=== PATIENT | male | born 2000 ===

== ENCOUNTER 2019-04-01 16:30 | Emergency (ER) | payer OTHER ==
[~2019-04-01] VITALS: Ht 185.4 cm; Wt 66.7 kg
--- NOTE | 2019-04-01 16:39 | NUR ---
CALLED PATIENT NO ANSWER
--- NOTE | 2019-04-01 16:56 | NUR ---
Pt assessed. Reports bilateral testicular "tenderness" for past hour. Pt reports L worst than R. Denies trauma, fever, or urinary s/s. Girlfriend at BS. Will cont to monitor.
[2019-04-01 17:23] LABS: MICROSCOPIC NOT IND
[2019-04-01 17:29] LABS: CULTURE INDICATED? NO
--- NOTE | 2019-04-01 18:25 | NUR ---
Rounded on pt. Still waiting for US. VS checked. NAD at this time. Will cont to monitor
--- NOTE | 2019-04-01 18:57 | NUR ---
Report to Paulette WEINBERG, turning over care at this time
[2019-04-01 19:18] VITALS: BP 100/70
--- NOTE | 2019-04-01 19:33 | NUR ---
PT RESTING CALMLY, MONITROS IN PLACE, CALL LIGHT5 WITHIN REACH
== END 2019-04-01 19:56 | disposition home or self-care (01) ==
LOC: ED 18:05
DX: N50.82 Scrotal pain (principal); N43.2 Other hydrocele
CPT/HCPCS: 76870; 81003; 99284

== ENCOUNTER 2019-12-20 09:37 | Inpatient (IN) | payer OTHER ==
[~2019-12-20] VITALS: Ht 185.4 cm; Wt 67.5 kg
[2019-12-20] MEDS ORDERED: OXYcodone/APAP 5/325MG TABLET PO ONE (10:00)
[2019-12-20] MEDS ORDERED: OXYcodone/APAP 5/325MG TABLET ONE (10:27)
--- NOTE | 2019-12-20 10:31 | NUR ---
RIGHT WRIST SWELLING/DEFORMITY. GOOD CMS. STATES HE FELL OFF A ROOF LAST NIGHT. PT STATES HE ALSO HIT HIS HEAD. PT DOES NOT RECALL HOW FAR HE FELL. DENIES NECK PAIN. MEDICATED FOR RIGHT WRIST PAIN. PA DISCUSSING XRYA RESULTS.
--- NOTE | 2019-12-20 10:40 | NUR ---
yon tavares spoke with dr diane
[2019-12-20] MEDS ORDERED: SODIUM CHLORIDE FLUSH 10ML SYR IVF ONE (11:00)
--- NOTE | 2019-12-20 11:15 | NUR ---
PT MOVED TO ROOM 27. KAILEY JAY AT BEDSIDE TO UPDATE PT WITH RESULTS AND POC, INCLUDING HEAD CT RESULTS. PT STATES LAST PO INTAKE WAS WATER WITH MED AT 1030 THIS AM, LAST FOOD INTAKE WAS PIZZA AT 2200 LAST NIGHT. PT PT DENIES HEAD OR NECK PAIN. PUPILS ARE EQUAL ROUND AND REACTIVE. PT IS DROWSY (STATES THIS IS SECONDARY TO PERCOCET), BUT ORIENTED X 4. EYES OPEN SPONTANEOUSLY. NEURO INTACT. PT INSTRUCTED TO REMAIN IN BED, WITH HEAD AT 30 DEGREES.
[2019-12-20 11:18] LABS: BASOPHILS # (AUTO) 0.02 x10^3/uL (0-0.3); BASOPHILS % (AUTO) 0 % (0-1); EOSINOPHILS % (AUTO) 0 % (1-7); LYMPHOCYTES # (AUTO) 0.87 x10^3/uL (1-6.1); LYMPHOCYTES % (AUTO) 7 % (22-44); MD NO; MEAN CORPUSCULAR HEMOGLOBIN 32.5 pg (27.5-34.5); MEAN CORPUSCULAR VOLUME 95.7 fL (81-97); MEAN PLATELET VOLUME 7.7 fL (7.4-10.4); MONOCYTES # (AUTO) 0.78 x10^3/uL (0-1.4); MONOCYTES % (AUTO) 7 % (2-9); NEUTROPHILS # (AUTO) 10.21 x10^3/uL (1.8-8.0); NEUTROPHILS % (AUTO) 86 % (42-75); PLATELET COUNT 283 x10^3/uL (130-400); RED CELL DISTRIBUTION WIDTH 12.4 % (9.4-14.8)
[2019-12-20 11:28] LABS: ANION GAP 13 mmol/L (5-15); CALCIUM 8.4 mg/dL (8.5-10.1); CHLORIDE 104 mmol/L (98-107); CREATININE 0.87 mg/dL (0.7-1.3)
--- NOTE | 2019-12-20 11:29 | NUR ---
REPORT TO MARLENI WEINBERG
--- NOTE | 2019-12-20 11:40 | NUR ---
NEUROSURGEON CONSULTED, MD AT BEDSIDE AT THIS TIME FOR PATIENT ASSESSMENT AND EDUCATION. PT TO GO TO ICU FOR MONITORING, ORTHO SURGERY TO BE DELAYED UNTIL TOMORROW.
--- NOTE | 2019-12-20 11:49 | NUR ---
EDT'S AT BEDSIDE FOR SPLINT. SECOND PIV PLACED. REPORT GIVEN TO BREAK SULTANA ERWIN. VSS. NEURO CHECKS IN PLACE, NO CHANGE IN STATUS AT THIS TIME.
--- NOTE | 2019-12-20 12:28 | NUR ---
REPORT RECEIVED FROM HANNAH SANTOS, THIS RN RESUMING CARE.
--- NOTE | 2019-12-20 12:49 | NUR ---
PT A&OX4, REPSS EVEN AND UNLABORED. NEURO INTACT, PUPILS EQUAL, ROUND AND REACTIVE. PT DENIES PAIN. PT SPEAKING IN FULL SENTENCES WITHOUT DIFFICULTY. FRIEND AT BEDSIDE. AWAITING ICU ROOM ASSIGNEMENT AND DISPO.
--- NOTE | 2019-12-20 13:16 | NUR ---
PT GIVEN WATER WITH MD JAY'S OK. PT TOLERATED WELL. HEAD OF BED MAINTAINED AT 30 DEGREES, SEIZURE PRECAUTIONS IN PLACE. VSS. ALL MONITORS IN PLACE. 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 AWAITING ICU BED ASSIGNMENT AND DISPO.
--- NOTE | 2019-12-20 13:24 | NUR ---
MD GOMEZ AT BEDSIDE FOR ADMIT ASSESSMENT. PT A&O, RESPS EVEN AND UNLABORED. 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 PT SPEAKING IN FULL SENTENCES WITHOUT DIFFICULTY.
[2019-12-20] MEDS ORDERED: ACETAMINOPHEN 325 MG TABLET PO PRN (13:30)
[2019-12-20] MEDS ORDERED: ONDANSETRON 2MG/ML, 2ML IVPush PRN (13:30)
--- NOTE | 2019-12-20 13:39 | NUR ---
latha gtt requested from pharmacy.
--- NOTE | 2019-12-20 13:53 | NUR ---
PT A&OX4, RESPS EVEN AND UNLABORED. 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 NO NEURO CHANGES NOTED. CMS INTACT TO RIGHT UE WHICH IS SPLINTED. CT CALLED TO INFORM RN IS READY TO TRANSPORT PT WHEN SCANNER AVAILABLE, CT TO CALL RN BACK WHEN SCANNER IS FREE. JOHN HAS NOT ARRIVED YET FROM PHARMACY.
--- NOTE | 2019-12-20 13:57 | NUR ---
pharmacy called to request latha second time.
--- NOTE | 2019-12-20 14:07 | NUR ---
report called to receiving RN Wendy. azul received from pharmacy.
[2019-12-20] MEDS: LEVETIRACETAM 500 MG in SODIUM CHLORIDE 0.9% 100 ML IV SCH (14:17)
[2019-12-20] MEDS ORDERED: OMNIPAQUE 350 MG/ML, 100ML BOTTLE ONE (14:44)
--- NOTE | 2019-12-20 14:53 | NUR ---
pt transported to CT then ICU with donna and this RN. updated report given to receiving RN Mara at bedside. pt a&ox4, resps even and unlabored, no change in status upon arrival to ICU. pt tolerated CTs well. Keppra infusion complete on arrival. C spine precautions in place pending CT c spine results. RN Mara assuming care at this time.
--- NOTE | 2019-12-20 15:14 | NUR ---
pt's mother given update on pt status with pt's permission. pt's mother's phone number is [phone].
[2019-12-20] MEDS: SODIUM CHLORIDE 0.9% 1,000 ML IV SCH (16:00)
[2019-12-20 16:25] LABS: INTERNATIONAL NORMALIZED RATIO 0.97 (0.93-1.1); PROTHROMBIN TIME 10.3 Seconds (9.6-11.5)
[2019-12-20 16:57] VITALS: BP 124/63
[2019-12-20 17:39] LABS: ALANINE AMINOTRANSFERASE 31 U/L (12-78); BILIRUBIN, DIRECT 0.4 mg/dL (0.1-0.2)
[2019-12-20 17:41] LABS: ALKALINE PHOSPHATASE 104 U/L (45-117); BILIRUBIN,INDIRECT 0.9 mg/dL (0.0-2.0); BILIRUBIN,TOTAL 1.3 mg/dL (0.2-1.0); TOTAL PROTEIN 7.9 g/dL (6.4-8.2)
[2019-12-21] MEDS: LEVETIRACETAM 500 MG in SODIUM CHLORIDE 0.9% 100 ML IV SCH ×2 (01:21→13:26)
[2019-12-21] MEDS: SODIUM CHLORIDE 0.9% 1,000 ML IV SCH ×2 (02:15→13:28)
[2019-12-21 03:51] LABS: ALBUMIN 3.2 g/dL (3.4-5.0); ANION GAP 7 mmol/L (5-15); CHLORIDE 106 mmol/L (98-107)
[2019-12-21 03:56] LABS: ALANINE AMINOTRANSFERASE 26 U/L (12-78); ALKALINE PHOSPHATASE 97 U/L (45-117); BILIRUBIN,TOTAL 1.4 mg/dL (0.2-1.0); CREATININE 0.82 mg/dL (0.7-1.3); TOTAL PROTEIN 6.3 g/dL (6.4-8.2)
[2019-12-21 03:57] LABS: BASOPHILS # (AUTO) 0.02 x10^3/uL (0-0.3); BASOPHILS % (AUTO) 0 % (0-1); EOSINOPHILS # (AUTO) 0.05 x10^3/uL (0-0.8); EOSINOPHILS % (AUTO) 1 % (1-7); LYMPHOCYTES # (AUTO) 1.09 x10^3/uL (1-6.1); LYMPHOCYTES % (AUTO) 19 % (22-44); MD NO; MEAN CORPUSCULAR HEMOGLOBIN 32.8 pg (27.5-34.5); MEAN CORPUSCULAR HGB CONC 34.5 g/dL (33.2-36.2); MEAN CORPUSCULAR VOLUME 95.1 fL (81-97); MEAN PLATELET VOLUME 7.8 fL (7.4-10.4); MONOCYTES # (AUTO) 0.65 x10^3/uL (0-1.4); MONOCYTES % (AUTO) 11 % (2-9); NEUTROPHILS # (AUTO) 4.05 x10^3/uL (1.8-8.0); NEUTROPHILS % (AUTO) 69 % (42-75); PLATELET COUNT 221 x10^3/uL (130-400); RED BLOOD COUNT 4.16 x10^6/uL (4.38-5.82); RED CELL DISTRIBUTION WIDTH 12.7 % (9.4-14.8)
[2019-12-21 04:16] VITALS: BP 143/68
[2019-12-21] MEDS ORDERED: BUPIVACAINE/PF 0.5% ONE (13:19)
[2019-12-21] MEDS ORDERED: EPINEPHRINE 1 MG/ML, 1ML ONE (13:19)
[2019-12-21] MEDS ORDERED: MIDAZOLAM 1 MG/ML, 2ML ONE (13:29)
[2019-12-21] MEDS ORDERED: FENTANYL PF 250 MCG/5ML ONE (13:29)
[2019-12-21] MEDS ORDERED: PROPOFOL 10 MG/ML, 20ML ONE (14:55)
[2019-12-21] MEDS ORDERED: CEFAZOLIN 1,000 MG ONE (14:55)
[2019-12-21] MEDS ORDERED: ONDANSETRON 2MG/ML, 2ML ONE (14:55)
[2019-12-21] MEDS ORDERED: DEXAMETHASONE 4 MG/ML, 1ML ONE (14:55)
[2019-12-21] MEDS ORDERED: LEVE500T53 PO (16:32)
[2019-12-21] MEDS ORDERED: TRAM50TA2 PO (16:43)
[2019-12-21 17:17] VITALS: BP 126/75
[2019-12-21] MEDS ORDERED: CEFAZOLIN PMX 1GM/50ML 50 ML IVPB SCH (23:00)
== END 2019-12-21 18:19 | disposition home or self-care (01) | DRG 41 ==
LOC: OR 11:30 → EDIP 13:04 → ICU 14:44
PROVIDERS: ADMIT Internal Medicine; ATTEND Hospitalist
PROC: 0PSM04Z Reposition Right Carpal with Internal Fixation Device, Open Approach (ICD-10-PCS; 2019-12-21)
PROC: 3E0T3BZ Introduction of Anesthetic Agent into Peripheral Nerves and Plexi, Percutaneous Approach (ICD-10-PCS; 2019-12-21)
PROC: 01N50ZZ Release Median Nerve, Open Approach (ICD-10-PCS; principal; 2019-12-21 13:30)
DX: G56.01 Carpal tunnel syndrome, right upper limb (principal); S02.19XA Other fracture of base of skull, initial encounter for closed fracture; E87.2 Acidosis; F12.90 Cannabis use, unspecified, uncomplicated; F41.9 Anxiety disorder, unspecified; W13.2XXA Fall from, out of or through roof, initial encounter; Y93.89 Activity, other specified; Y92.89 Other specified places as the place of occurrence of the external cause; Y99.8 Other external cause status; S06.2X0A Diffuse traumatic brain injury without loss of consciousness, initial encounter; S62.309A Unspecified fracture of unspecified metacarpal bone, initial encounter for closed fracture
CPT/HCPCS: 36415; 70450; 71045; 72125; 74177; 76000; 80048; 80053; 80076; 82040; 83735; 84100; 85025; 85610; 85730; 87081; 99291; C1713; G0378; J0171; J0690; J1100; J1953; J2250; J2405; J2704; J3010; Q9967; J7030

== ENCOUNTER 2020-02-22 12:50 | Day surgery (SDC) | payer MEDICAID, OTHER ==
[~2020-02-22] VITALS: Ht 185.4 cm; Wt 67.1 kg
[~2020-02-22 12:50] MED LIST: BUPIVACAINE/PF 0.5% ONE; LEVE500T53 PO; TRAM50TA2 PO
[2020-02-22] MEDS ORDERED: FENTANYL PF 100 MCG/2ML ONE ×2 (13:02→14:36)
[2020-02-22] MEDS ORDERED: MIDAZOLAM 1 MG/ML, 2ML ONE (13:02)
[2020-02-22] MEDS ORDERED: LACTATED RINGERS 1,000 ML IV SCH (13:07)
[2020-02-22 13:10] VITALS: BP 120/76
[2020-02-22] MEDS ORDERED: CHLORHEXIDINE 15 ML UDC MM STA (13:18)
[2020-02-22] MEDS ORDERED: CHLORHEXIDINE 15 ML UDC ONE ×2 (13:20→13:22)
[2020-02-22] MEDS ORDERED: SUCCINYLCHOLINE 20 MG/ML, 10ML ONE (13:29)
[2020-02-22] MEDS ORDERED: ROCURONIUM 10 MG/ML,10ML ONE (13:29)
[2020-02-22] MEDS ORDERED: ONDANSETRON 2MG/ML, 2ML ONE (13:47)
[2020-02-22] MEDS ORDERED: KETOROLAC 30 MG/1 ML ONE (13:47)
[2020-02-22] MEDS ORDERED: DEXAMETHASONE 4 MG/ML, 1ML ONE (13:47)
[2020-02-22] MEDS ORDERED: PROPOFOL 10 MG/ML, 20ML ONE (13:47)
[2020-02-22] MEDS ORDERED: CEFAZOLIN 1,000 MG ONE (13:47)
[2020-02-22] MEDS ORDERED: OXYcodone 5 MG/5 ML ORAL.SOL UDC PO PRN (14:00)
[2020-02-22] MEDS ORDERED: PROMETHAZINE 25 MG/ML, 1ML IV PRN (14:00)
[2020-02-22] MEDS ORDERED: HYDROmorphone 2 MG/ML, 1ML IVPush PRN (14:00)
[2020-02-22] MEDS ORDERED: MIDAZOLAM 1 MG/ML, 2ML IV PRN (14:00)
[2020-02-22] MEDS ORDERED: DIAZEPAM 5 MG/ML, 2ML IVPush PRN (14:00)
[2020-02-22] MEDS ORDERED: ACETAMINOPHEN 325 MG TABLET PO PRN (14:00)
[2020-02-22] MEDS ORDERED: FENTANYL PF 100 MCG/2ML IV PRN (14:00)
[2020-02-22] MEDS ORDERED: MEPERIDINE/PF 25MG/ML,1ML IVPush PRN (14:00)
[2020-02-22] MEDS ORDERED: OXYcodone 5 MG/5 ML ORAL.SOL UDC ONE (14:36)
== END 2020-02-22 16:00 | disposition home or self-care (01) ==
LOC: OR 12:50
PROVIDERS: ATTEND Orthopaedic Surgery
DX: Z47.2 Encounter for removal of internal fixation device (principal); Z79.891 Long term (current) use of opiate analgesic
CPT/HCPCS: 20680; 73100; J0330; J0690; J1100; J1885; J2250; J2405; J2704; J3010; J7120; 76000

== ENCOUNTER 2020-02-29 17:53 | Emergency (ER) | payer MEDICAID ==
[~2020-02-29] VITALS: Ht 185.4 cm; Wt 67.3 kg
[~2020-02-29 17:53] MED LIST changes: -BUPIVACAINE/PF 0.5% ONE
--- NOTE | 2020-02-29 18:26 | NUR ---
Pt was skateboarding and fell backward and hit his head and reports he had a loss of LOC and was confused about 20 seconds. Pt is now A/ox4 and is aware of everything that is going on at this time. Pt reports his head hurts alot and is concerned he broke something. VSS
--- NOTE | 2020-02-29 19:22 | NUR ---
BEDSIDE REPORT AND CARE FROM TERE WEINBERG AT THIS TIME. PT TALKING ON CELL PHONE AND LAUGHING WITH MOTHER. VSS. DENIES NEED TO USE RESTROOM. RATES PAIN 1/10 IN HEAD. REFUSES NEED FOR PAIN MEDICAITON. A&OX4. AWAITING RECHECK FROM ERP. CALL LIGHT IN REACH. FALL PRECAUTIONS IN PLACE.
--- NOTE | 2020-02-29 20:27 | NUR ---
PT AWAITING RECHECK. AMBULATORY TO RESTROOM WITH STEADY GAIT. BACK TO [facility], RESTING COMFORTABLY. REMAINS A&OX4. VSS. CALL LIGHT IN REACH. FALL PRECUATIONS IN PLACE. PT TALKING ON CELL PHONE. NO SEIZURE ACTIVITY NOTED OR REPORTED. SEIZURE PRECAUTIONS/PADS REMAIN IN PLACE.
--- NOTE | 2020-02-29 20:34 | NUR ---
ALEENA CARUSO AT BEDSIDE FOR RECHECK. AWAITING CHART AND DISCHARE PAPERS
[2020-02-29 20:52] VITALS: BP 116/78
== END 2020-02-29 20:55 ==
LOC: ED 19:21
DX: S06.0X1A Concussion with loss of consciousness of 30 minutes or less, initial encounter (principal); S80.02XA Contusion of left knee, initial encounter; V00.131A Fall from skateboard, initial encounter; Y93.89 Activity, other specified; Y92.830 Public park as the place of occurrence of the external cause; Y99.8 Other external cause status
CPT/HCPCS: 70450; 93005; 99284

== ENCOUNTER 2020-11-21 13:17 | Emergency (ER) | payer MEDICAID ==
[~2020-11-21] VITALS: Ht 185.4 cm; Wt 70.2 kg
[2020-11-21 13:21] VITALS: BP 100/74
--- NOTE | 2020-11-21 13:33 | NUR ---
AMBULATED FROM TRIAGE TO ROOM WITH USE OF CRUTCHES. PT C/O RIGHT ANKLE PAIN AFTER CRASHING ON SKATEBOARD YESTERDAY
--- NOTE | 2020-11-21 13:34 | NUR ---
CORRECTION: LEFT ANKLE
[2020-11-21] MEDS ORDERED: IBUPROFEN 800 MG TABLET ONE (13:38)
[2020-11-21] MEDS ORDERED: IBUPROFEN 800 MG TABLET PO ONE (14:00)
== END 2020-11-21 14:40 | disposition home or self-care (01) ==
LOC: ED 13:54
DX: S93.492A Sprain of other ligament of left ankle, initial encounter (principal); X50.0XXA Overexertion from strenuous movement or load, initial encounter; Y93.89 Activity, other specified; Y92.410 Unspecified street and highway as the place of occurrence of the external cause; Y99.8 Other external cause status
CPT/HCPCS: 29515; 99283

== ENCOUNTER 2021-03-17 14:46 | Emergency (ER) | payer MEDICAID ==
[~2021-03-17] VITALS: Ht 185.4 cm; Wt 69.5 kg
[2021-03-17 15:59] VITALS: BP 111/44
--- NOTE | 2021-03-17 16:02 | NUR ---
PT REC'VD DISCHARGE INSTRUCTIONS AND EDUCATION. PT HAD NO FURTHER QUESTIONS. PT AMBULATED TO DC AREA, STEADY GAIT.
== END 2021-03-17 16:07 | disposition home or self-care (01) ==
LOC: ED 15:35
DX: S80.11XA Contusion of right lower leg, initial encounter (principal); W18.00XA Striking against unspecified object with subsequent fall, initial encounter; Y93.89 Activity, other specified; Y92.410 Unspecified street and highway as the place of occurrence of the external cause; Y99.8 Other external cause status
CPT/HCPCS: 99284